=== PATIENT | female | born 1980 | race Caucasian/White ===

== ENCOUNTER 2018-09-13 14:46 | Outpatient (CLI) | payer OTHER | END 2018-09-13 14:51 | disposition home or self-care (01) | LOC: MAMO-SONO 14:46 | DX: Z12.31 Encounter for screening mammogram for malignant neoplasm of breast (principal) ==

== ENCOUNTER 2020-05-16 11:07 | Outpatient (CLI) | payer OTHER | END 2020-05-16 11:24 | disposition home or self-care (01) | LOC: MAMO-SONO 11:07 | PROVIDERS: ATTEND Obstetrics & Gynecology | DX: Z12.31 Encounter for screening mammogram for malignant neoplasm of breast (principal); N60.11 Diffuse cystic mastopathy of right breast ==

== ENCOUNTER 2022-04-09 14:18 | Outpatient (CLI) | payer OTHER | END 2022-04-09 14:50 | disposition home or self-care (01) | LOC: MAMO-SONO 14:18 | DX: N60.11 Diffuse cystic mastopathy of right breast (principal); N60.12 Diffuse cystic mastopathy of left breast; N93.9 Abnormal uterine and vaginal bleeding, unspecified; Z12.31 Encounter for screening mammogram for malignant neoplasm of breast ==